=== PATIENT | female | born 1960 | race Caucasian/White ===

== ENCOUNTER 2017-04-19 17:16 | Emergency (ER) | payer OTHER ==
[2017-04-19 17:26] VITALS: BP 169/78; PULSE 66; TEMP 98.3; BMI 29.8
--- NOTE | 2017-04-19 18:00 | PDOC ---
History of Present Illness - General Chief Complaint: Pain Stated Complaint: PAIN Time Seen by Provider: 04/19/17 17:44 History Source: Patient Exam Limitations: No Limitations - History of Present Illness Initial Comments: 04/19/17 17:55 CHIEF COMPLAINT: Right hand pain HISTORY OF PRESENT ILLNESS: Patient is a 57-year-old female, history of NIDDM currently on no medication presents for evaluation of right hand pain with swelling, Pain and swelling at the MCP's. Patient reports pain for 2 months was seen by Dr. Cerrato, labs were performed does not know results patient's sister is visiting from [place] of [place] saw the patient was in pain and made her come to emergency department. Occurred: reports: other (2 months) Severity: reports: moderate Upper Extremity Pain Location: right: hand Method of Injury: reports: unknown Modifying Factors: improves with: None Extremity Pain Location - Extremity Pain Location Extremity Pain Locations: right: hand Past History - Past Medical History Allergies/Adverse Reactions: Allergies Allergy/AdvReac Type Severity Reaction Status Date / Time No Known Allergies Allergy Verified 04/19/17 17:23 Home Medications: Ambulatory Orders Metformin Xr [Glucophage Xr -] 500 mg PO BID 10/14/15 Naproxen [Naprosyn -] 500 mg PO BID #14 tablet 04/19/17 Diabetes: Yes HTN: Yes Thyroid Disease: Yes (HYPO, no meds, well conroled) - Surgical History Abdominal Surgery: Yes (GASTRIC SLEEVE/HERNIA REPAIR: 10/17/13) Appendectomy: Yes - Family Disease History Family Disease History: Diabetes: Father, Heart Disease: Mother - Immunization History Immunization Up to Date: Yes - Psycho/Social/Smoking Cessation Hx Anxiety: No Suicidal Ideation: No Smoking Status: No Smoking History: Never smoked Have you smoked in the past 12 months: No Number of Cigarettes Smoked Daily: 0 Cigars Per Day: 0 Information on smoking cessation initiated: No Hx Alcohol Use: No Drug/Substance Use Hx: No Substance Use Type: None Review of Systems - Review of Systems Constitutional: No: Symptoms Reported HEENTM: No: Symptoms Reported Respiratory: No: Symptoms reported Cardiac (ROS): No: Symptoms Reported ABD/GI: No: Symptoms Reported : No: Symptoms Reported Musculoskeletal: Yes: Joint Pain, Joint Swelling Integumentary: No: Bruising, Change in Color, Change in Hair/Nails, Erythema Neurological: No: Symptoms reported, Paresthesia, Tingling, Tremors All Other Systems: Reviewed and Negative *Physical Exam - Vital Signs Last Vital Signs Temp Pulse Resp BP Pulse Ox 98.3 F 66 18 169/78 100 04/19/17 17:24 04/19/17 17:24 04/19/17 17:24 04/19/17 17:24 04/19/17 17:24 - Physical Exam General Appearance: Yes: Appropriately Dressed. No: Apparent Distress Neck: negative: Tender lateral, Tender midline Respiratory/Chest: positive: Lungs Clear, Normal Breath Sounds Musculoskeletal: negative: Decreased Range of Motion Extremity: positive: Tender, Swelling. negative: Erythema, Inflammation Integumentary: positive: Normal Color, Dry. negative: Erythema, Swelling, Ecchymosis, Bruising Neurologic: positive: Alert, Normal Mood/Affect ED Treatment Course - RADIOLOGY Radiology Studies Ordered: Category Date Time Status HAND- RIGHT [RAD] Stat Radiology 04/19/17 17:52 Ordered Medical Decision Making - Medical Decision Making 04/19/17 18:01 A/P : Patient with right hand pain, swelling to MCPs third and fourth finger, denies injury. High suspicion for arthritic changes, we'll send patient for x- ray to rule out acute injury that may have been unknown to patient 04/19/17 18:43 Wet read xray negative for acute fracture or injury, patient will need to follow -up with rheumatology and Dr. Cerrato for evaluation of arthritis. Will DC patient on Naprosyn. I discussed the physical exam findings, ancillary test results and final diagnoses with the patient. I answered all of the patient's questions. The patient was satisfied with the care received and felt comfortable with the discharge plan and treatment plan. The patient will call to arrange follow-up and will return to the Emergency Department with any new, persistent or worsening symptoms. 04/19/17 18:46 *DC/Admit/Observation/Transfer Diagnosis at time of Disposition: Hand pain Qualifiers: Laterality: right Qualified Code(s): M79.641 - Pain in right hand - Discharge Dispostion Disposition: HOME Condition at time of disposition: Good Admit: No - Prescriptions Prescriptions: Naproxen [Naprosyn -] 500 mg PO BID #14 tablet - Referrals Referrals: Brian Ibarra MD [Staff Physician] - Kedar Cerrato MD [Staff Physician] - Danette Hameed [Non Staff, Medical] - - Patient Instructions Additional Instructions: Recommend follow-up with rheumatology as soon as possible and primary care doctor - Post Discharge Activity Work/School Note: Back to Work
== END 2017-04-19 18:51 | disposition home or self-care (01) ==
LOC: JERFT 17:16
DX: M79.641 Pain in right hand (principal); I10 Essential (primary) hypertension; E11.9 Type 2 diabetes mellitus without complications; Z79.84 Long term (current) use of oral hypoglycemic drugs; E03.9 Hypothyroidism, unspecified
CPT/HCPCS: 73130-TC-RT; 99281-25

== ENCOUNTER 2019-03-06 17:09 | Inpatient (IN) | payer BC, OTHER ==
--- NOTE | 2019-03-06 17:12 | PDOC ---
Rapid Medical Evaluation Time Seen by Provider: 03/06/19 17:10 Medical Evaluation: Allergies Allergy/AdvReac Type Severity Reaction Status Date / Time No Known Allergies Allergy Verified 04/19/17 17:23 03/06/19 17:10 I have performed a brief in-person evaluation of this patient. The patient presents with a chief complaint of: fatigued. Abnormal stress test Pertinent physical exam findings: lungs CTAB. S1,S2 persent. No m/r/g. I have ordered the following: cardiac The patient will proceed to the ED for further evaluation. Discharge Disposition - Diagnosis Fatigue - Referrals - Patient Instructions - Post Discharge Activity
[2019-03-06 17:37] LABS: BASO % 0.5 % (0-2.0); EOS % 1.6 % (0-4.5); HEMATOCRIT 34.4 % (32.4-45.2); HEMOGLOBIN 11.8 GM/dL (10.7-15.3); LYMPH % 30.3 % (8-40); MCH 31.3 pg (25.7-33.7); MCHC 34.4 g/dl (32.0-36.0); MEAN PLT VOLUME 7.9 fl (7.5-11.1); MONO % 5.8 % (3.8-10.2); NEUT % 61.8 % (42.8-82.8); PLATELET COUNT 226 K/MM3 (134-434); RBC 3.78 M/mm3 (3.60-5.2); RDW 13.6 % (11.6-15.6); WHITE BLOOD COUNT 6.5 K/mm3 (4.0-10.0)
--- NOTE | 2019-03-06 17:45 | PDOC ---
History of Present Illness - General Chief Complaint: Weakness Stated Complaint: SENT BY HER DOCTOR Time Seen by Provider: 03/06/19 17:10 - History of Present Illness Initial Comments: 03/06/19 17:45 Ms. Pinedo is a 58 yo female w/ pmh of HTN, Hypothyroidism, and DM who presents for evaluation on direction of Dr. Harvey (PCP). Patient reportedly had abnormal stress test 4/5 and PCP would like her admitted for further cardiac workup. Patient reports a 1 month history of generalized weakness. No other complaints at this time. The patient denies chest pain, shortness of breath, headache and dizziness. Denies fever, chills, nausea, vomit, diarrhea and constipation. Denies dysuria, frequency, urgency and hematuria. Past History - Past Medical History Allergies/Adverse Reactions: Allergies Allergy/AdvReac Type Severity Reaction Status Date / Time No Known Allergies Allergy Verified 03/06/19 17:15 Home Medications: Ambulatory Orders Losartan/Hydrochlorothiazide [Losartan-Hctz 100-25 mg Tab] 1 each PO DAILY 03/06 Meloxicam [Mobic] 15 mg PO DAILY 03/06/19 Sitagliptin Phosphate [Januvia] 100 mg PO DAILY 03/06/19 COPD: No Diabetes: Yes HTN: Yes Thyroid Disease: Yes (HYPO, no meds, well conroled) - Surgical History Abdominal Surgery: Yes (GASTRIC SLEEVE/HERNIA REPAIR: 10/17/13) Appendectomy: Yes - Family Disease History Family Disease History: Diabetes: Father, Heart Disease: Mother - Immunization History Immunization Up to Date: Yes - Suicide/Smoking/Psychosocial Hx Smoking Status: No Smoking History: Never smoked Have you smoked in the past 12 months: No Number of Cigarettes Smoked Daily: 0 Cigars Per Day: 0 Information on smoking cessation initiated: No Hx Alcohol Use: No Drug/Substance Use Hx: No Substance Use Type: None Review of Systems - Review of Systems Comments:: 03/06/19 17:49 GENERAL/CONSTITUTIONAL: +Generalized weakness as described. No fever or chills. HEAD, EYES, EARS, NOSE AND THROAT: No change in vision. No ear pain or discharge. No sore throat. CARDIOVASCULAR: No chest pain or shortness of breath RESPIRATORY: No cough, wheezing, or hemoptysis. GASTROINTESTINAL: No nausea, vomiting, diarrhea or constipation. GENITOURINARY: No dysuria, frequency, or change in urination. MUSCULOSKELETAL: No joint or muscle swelling or pain. No neck or back pain. SKIN: No rash NEUROLOGIC: No headache, vertigo, loss of consciousness, or change in strength/ sensation. ENDOCRINE: No increased thirst. No abnormal weight change HEMATOLOGIC/LYMPHATIC: No anemia, easy bleeding, or history of blood clots. ALLERGIC/IMMUNOLOGIC: No hives or skin allergy. *Physical Exam - Vital Signs Last Vital Signs Temp Pulse Resp BP Pulse Ox 97.7 F 79 18 188/98 H 98 03/06/19 17:11 03/06/19 17:11 03/06/19 17:11 03/06/19 17:11 03/06/19 17:11 - Physical Exam Comments: 03/06/19 17:49 GENERAL: Awake, alert, and fully oriented, in no acute distress HEAD: No signs of trauma, normocephalic, atraumatic EYES: PERRLA, EOMI, sclera anicteric, conjunctiva clear ENT: Auricles normal inspection, hearing grossly normal, nares patent, oropharynx clear without exudates. Moist mucosa NECK: Normal ROM, supple, no lymphadenopathy, JVD, or masses LUNGS: No distress, speaks full sentences, clear to auscultation bilaterally HEART: Regular rate and rhythm, normal S1 and S2, no murmurs, rubs or gallops, peripheral pulses normal and equal bilaterally. ABDOMEN: Soft, nontender, normoactive bowel sounds. No guarding, no rebound. No masses EXTREMITIES: Normal inspection, Normal range of motion, no edema. No clubbing or cyanosis. NEUROLOGICAL: Cranial nerves II through XII grossly intact. Normal speech, normal gait, no focal sensorimotor deficits SKIN: Warm, Dry, normal turgor, no rashes or lesions noted. ED Treatment Course - LABORATORY CBC & Chemistry Diagram: 03/06/19 17:22 03/06/19 17:21 - ADDITIONAL ORDERS Additional order review: 03/06/19 17:22 RBC 3.78 MCV 91.0 MCHC 34.4 RDW 13.6 MPV 7.9 Neutrophils % 61.8 Lymphocytes % 30.3 Monocytes % 5.8 Eosinophils % 1.6 Basophils % 0.5 Medical Decision Making - Medical Decision Making 03/06/19 18:03 Ms. Pinedo is a 58 yo female w/ pmh as described who presents for evaluation of abnormal outpatient stress test. Per records test yielded target heart rate of 85% of maximum predicted, 12 beat run of SVT; abnormal ECHO for inducible ischemia. Patient will be prepped for admission. 03/06/19 19:31 Discussed patient with PCP who would like patient admitted overnight to Dr. Parkinson and will transfer to [facility] tomorrow for possible intervention. 03/06/19 19:39 Patient admitted to hospital team. *DC/Admit/Observation/Transfer Diagnosis at time of Disposition: Abnormal stress echo Fatigue Qualifiers: Fatigue type: unspecified Qualified Code(s): R53.83 - Other fatigue - Discharge Dispostion Decision to Admit order: Yes - Referrals Referrals: Brian Marie FNP [Primary Care Provider] - - Patient Instructions - Post Discharge Activity
[2019-03-06 17:50] LABS: INR 1.04 (0.83-1.09); PROTHROMBIN TIME (PATIENT) 12.3 SEC (9.7-13.0)
[2019-03-06 18:01] LABS: ALBUMIN 4.4 g/dl (3.4-5.0); ALK PHOS 89 U/L (45-117); ANION GAP 5 MMOL/L (8-16); BILIRUBIN,TOTAL 0.6 mg/dL (0.2-1); BLOOD UREA NITROGEN 21 mg/dL (7-18); CALCIUM 8.6 mg/dL (8.5-10.1); CHLORIDE 107 mmol/L (98-107); CO2 28 mmol/L (21-32); CREATININE 0.8 mg/dL (0.55-1.3); GLUCOSE,RANDOM 94 mg/dL (74-106); MAGNESIUM 1.9 mg/dL (1.8-2.4); POTASSIUM 3.9 mmol/L (3.5-5.1); SGOT/AST 17 U/L (15-37); SGPT/ALT 19 U/L (13-61); SODIUM 141 mmol/L (136-145); TOT PROT 8.3 g/dl (6.4-8.2)
--- NOTE | 2019-03-06 18:23 | PDOC ---
Documentation entered by Bre Loza SCRIBE, acting as scribe for Valerie Moody MD. Attending Attestation - Resident Resident Name: Earnest Saldana - ED Attending Attestation I have performed the following: I have examined & evaluated the patient, The case was reviewed & discussed with the resident, I agree w/resident's findings & plan - HPI HPI: 03/06/19 18:06 The patient is a 58 year old female with a PMH of HTN, hypothyroidism, and DM who presents to the ER sent in by Dr. Harvey after having an abnormal stress test on 03/03. Denies any other complaints other than generalized weakness over the past month. The patient denies chest pain, shortness of breath, headache and dizziness. Denies fever, chills, nausea, vomit, diarrhea and constipation. Denies dysuria, frequency, urgency and hematuria. - Physicial Exam PE: GENERAL: Awake, alert, and fully oriented, in no acute distress HEAD: No signs of trauma EYES: PERRLA, EOMI, sclera anicteric, conjunctiva clear ENT: Auricles normal inspection, hearing grossly normal, nares patent, oropharynx clear without exudates. Moist mucosa NECK: Normal ROM, supple, no lymphadenopathy, JVD, or masses LUNGS: Breath sounds equal, clear to auscultation bilaterally. No wheezes, and no crackles HEART: Regular rate and rhythm, normal S1 and S2, no murmurs, rubs or gallops ABDOMEN: Soft, nontender, normoactive bowel sounds. No guarding, no rebound. No masses EXTREMITIES: Normal range of motion, no edema. No clubbing or cyanosis. No cords, erythema, or tenderness NEUROLOGICAL: Cranial nerves II through XII grossly intact. Normal speech, normal gait. Motor and sensation intact SKIN: Warm, Dry, normal turgor, no rashes or lesions noted. - Medical Decision Making Pt sent for admission s/p abnormal stress test. Will send labs, obtain CXR, and admit to tele. Valerie Moody MD: This documentation has been prepared by the leigh annibeDenia Daisy, SCRIBE, under my direction and personally reviewed by me in its entirety. I confirm that the documentation accurately reflects all work, treatment, procedures, and medical decision making performed by me.
--- NOTE | 2019-03-06 20:35 | HP ---
Admitting History and Physical - Primary Care Physician PCP: Timmy Harvey - Admission Chief Complaint: Abnormal Echo, Generalized Fatigue History Source: Patient Limitations to Obtaining History: No Limitations - Past Medical History Cardiovascular: Yes: HTN Endocrine: Yes: Diabetes Mellitus, Hypothyroidism - Smoking History Smoking history: Never smoked Have you smoked in the past 12 months: No Aproximately how many cigarettes per day: 0 - Alcohol/Substance Use Hx Alcohol Use: No Home Medications - Allergies Allergies/Adverse Reactions: Allergies Allergy/AdvReac Type Severity Reaction Status Date / Time No Known Allergies Allergy Verified 03/06/19 17:15 - Home Medications Home Medications: Ambulatory Orders Losartan/Hydrochlorothiazide [Losartan-Hctz 100-25 mg Tab] 1 each PO DAILY 03/06 Meloxicam [Mobic] 15 mg PO DAILY 03/06/19 Sitagliptin Phosphate [Januvia] 100 mg PO DAILY 03/06/19 Review of Systems - Review of Systems Constitutional: reports: Malaise, Weakness Eyes: reports: No Symptoms HENT: reports: No Symptoms Neck: reports: No Symptoms Cardiovascular: reports: No Symptoms Respiratory: reports: No Symptoms Gastrointestinal: reports: No Symptoms Genitourinary: reports: No Symptoms Breasts: reports: No Symptoms Reported Musculoskeletal: reports: No Symptoms Integumentary: reports: No Symptoms Neurological: reports: No Symptoms Endocrine: reports: No Symptoms Hematology/Lymphatic: reports: No Symptoms Psychiatric: reports: No Symptoms Physical Examination Vital Signs: Vital Signs Temperature 97.7 F 03/06/19 17:11 Pulse Rate 79 03/06/19 17:11 Respiratory Rate 18 03/06/19 17:11 Blood Pressure 188/98 H 03/06/19 17:11 O2 Sat by Pulse Oximetry (%) 98 03/06/19 17:11 Labs: CBC, BMP 03/06/19 17:22 03/06/19 17:21 Problem List - Problems (1) Abnormal stress echo Code(s): R94.39 - ABNORMAL RESULT OF OTHER CARDIOVASCULAR FUNCTION STUDY (2) Fatigue Code(s): R53.83 - OTHER FATIGUE Qualifiers: Fatigue type: unspecified Qualified Code(s): R53.83 - Other fatigue (3) HTN (hypertension) Code(s): I10 - ESSENTIAL (PRIMARY) HYPERTENSION (4) Hypothyroidism Code(s): E03.9 - HYPOTHYROIDISM, UNSPECIFIED (5) Diabetes mellitus Code(s): E11.9 - TYPE 2 DIABETES MELLITUS WITHOUT COMPLICATIONS Visit type - Emergency Visit Emergency Visit: Yes ED Registration Date: 03/06/19 Care time: The patient presented to the Emergency Department on the above date and was hospitalized for further evaluation of their emergent condition. - New Patient This patient is new to me today: Yes Date on this admission: 03/06/19 - Critical Care Critical Care patient: No
[2019-03-06] MEDS: INSULIN SLIDING SCALE (NOVOLOG) 1 VIAL SQ SCH (22:00)
[2019-03-06] MEDS ORDERED: ACETAMINOPHEN 325 MG TABLET (FP) PO PRN ×2 (22:24→23:45)
[2019-03-07] MEDS ORDERED: ACETAMINOPHEN 325 MG TABLET (FP) ONE
[2019-03-07 06:26] LABS: BASO % 0.6 % (0-2.0); EOS % 2.2 % (0-4.5); HEMATOCRIT 32.5 % (32.4-45.2); HEMOGLOBIN 11.3 GM/dL (10.7-15.3); MCH 31.2 pg (25.7-33.7); MCHC 34.8 g/dl (32.0-36.0); MEAN CELL VOLUME 89.8 fl (80-96); MEAN PLT VOLUME 7.8 fl (7.5-11.1); MONO % 8.1 % (3.8-10.2); NEUT % 56.1 % (42.8-82.8); PLATELET COUNT 204 K/MM3 (134-434); RBC 3.62 M/mm3 (3.60-5.2); RDW 13.7 % (11.6-15.6); WHITE BLOOD COUNT 5.3 K/mm3 (4.0-10.0)
[2019-03-07] MEDS: INSULIN SLIDING SCALE (NOVOLOG) 1 VIAL SQ SCH ×2 (06:37→12:19)
[2019-03-07 06:55] LABS: ANION GAP 5 MMOL/L (8-16); BLOOD UREA NITROGEN 20 mg/dL (7-18); CALCIUM 9.1 mg/dL (8.5-10.1); CHLORIDE 109 mmol/L (98-107); CHOLESTEROL 174 mg/dL (50-200); CO2 29 mmol/L (21-32); CREATININE 0.7 mg/dL (0.55-1.3); GLUCOSE,RANDOM 94 mg/dL (74-106); HDL CHOLESTEROL 57 mg/dL (40-60); MAGNESIUM 1.9 mg/dL (1.8-2.4); POTASSIUM 3.8 mmol/L (3.5-5.1); SODIUM 142 mmol/L (136-145); TRIGLYCERIDES 94 mg/dL (0-150)
--- NOTE | 2019-03-07 09:36 | CON.CARD ---
Consult Consult Specialty:: Cardiology - History of Present Illness Chief Complaint: CP History of Present Illness: 58 F DMx 20 y and HTN with few weeks of fatigue, intermittent BONNER and CP mostly at her job at the [id number]. No rest pain. A stress echo 02/24/19 showed frequent VPCs and a run of SVT during exercise. Patient exercised to 85% MPHR (?duration of exercise) and noted to have posterior wall hypokinesis at peak stress. Since the test has had recurrent symptoms and was instructed to go to ER. Has been CP free since admission. Telem is normal. A cardiac cath 11 years ago was performed-no intervention. - History Source History Provided By: Patient Limitations to Obtaining History: No Limitations - Past Medical History Cardio/Vascular: Yes: HTN Endocrine: Yes: Diabetes Mellitus, Hypothyroidism - Alcohol/Substance Use Hx Alcohol Use: No - Smoking History Smoking history: Never smoked Have you smoked in the past 12 months: No Aproximately how many cigarettes per day: 0 Home Medications - Allergies Allergies/Adverse Reactions: Allergies Allergy/AdvReac Type Severity Reaction Status Date / Time No Known Allergies Allergy Verified 03/06/19 17:15 - Home Medications Home Medications: Ambulatory Orders Losartan/Hydrochlorothiazide [Losartan-Hctz 100-25 mg Tab] 1 each PO DAILY 03/06 Meloxicam [Mobic] 15 mg PO DAILY 03/06/19 Sitagliptin Phosphate [Januvia] 100 mg PO DAILY 03/06/19 Review of Systems - Review of Systems Constitutional: reports: No Symptoms Eyes: reports: No Symptoms HENT: reports: No Symptoms Neck: reports: No Symptoms Cardiovascular: reports: Chest Pain Respiratory: reports: No Symptoms Gastrointestinal: reports: No Symptoms Genitourinary: reports: No Symptoms Vital Signs: Vital Signs Temperature 98.0 F 03/07/19 04:00 Pulse Rate 72 03/07/19 04:00 Respiratory Rate 18 03/07/19 04:00 Blood Pressure 143/79 03/07/19 04:00 O2 Sat by Pulse Oximetry (%) 97 03/07/19 04:00 Constitutional: Yes: Well Nourished, No Distress, Calm Eyes: Yes: Conjunctiva Clear, EOM Intact HENT: Yes: Atraumatic, Normocephalic Neck: Yes: Supple, Trachea Midline Respiratory: Yes: Regular, CTA Bilaterally Gastrointestinal: Yes: Normal Bowel Sounds, Soft Cardiovascular: Yes: Regular Rate and Rhythm JVD: No Carotid Bruit: No PMI: Non-Displaced Heart Sounds: Yes: S1, S2 Murmur: No: Systolic Murmur, Diastolic Murmur Edema: No - Other Data Labs, Other Data: CBC, BMP 03/07/19 05:30 03/07/19 05:30 INR, PTT INR 1.04 (0.83-1.09) 03/06/19 17:22 Troponin, BNP 03/06/19 17:21 Troponin I 0.05 Troponin, BNP 03/06/19 17:21 Troponin I 0.05 Problem List - Problems (1) Angina pectoris Code(s): I20.9 - ANGINA PECTORIS, UNSPECIFIED (2) Abnormal stress echo Code(s): R94.39 - ABNORMAL RESULT OF OTHER CARDIOVASCULAR FUNCTION STUDY Assessment/Plan 58 F DM, HTN with recent fatigue, CP and BONNER with exertion. Stress echo with posterior wall stress induced Wall motion abnormality. Normal baseline Echo. ECG is normal. Mild dehydration by BUN/Cr. Possible new onset angina. HR 60bpm at rest. NS @75cc/hr Lipitor 80mg qd. Will transfer for cardiac cath. Discussed Risks/benefits/alternatives to cath with patient not limited to , RI, CVA, bleeding. Pt agreeable to the procedure.
[2019-03-07 09:41] VITALS: BP 161/80; PULSE 69
[2019-03-07] MEDS ORDERED: SODIUM CHLORIDE 1,000 ML IV SCH (09:45)
[2019-03-07] MEDS ORDERED: LOSARTAN 50MG/HCTZ 12.5MG 1 TAB (FP) PO SCH (10:00)
[2019-03-07 10:16] VITALS: TEMP 98.2; BMI 31.1
--- NOTE | 2019-03-07 12:28 | CONSULT ---
Consult Consult Specialty:: endocrine Referred by:: ed Reason for Consultation:: hypothyroidism. diabetes mellitus - History of Present Illness Chief Complaint: chest pain and dyspnea History of Present Illness: 58 F DMx 20 y and hypothyroidism, HTN, intermittent BONNER and CP mostly at her work. A stress echo 02/24/19 showed frequent VPCs and a run of SVT during exercise.abnormal stress test,with recurrent symptoms of chest pain and nearly passed out,advised to present to ed.she denies fever chills,nausea,or vomiting, - Past Medical History Cardio/Vascular: Yes: HTN ...: No Endocrine: Yes: Diabetes Mellitus, Hypothyroidism - Alcohol/Substance Use Hx Alcohol Use: No - Smoking History Smoking history: Never smoked Have you smoked in the past 12 months: No Aproximately how many cigarettes per day: 0 Home Medications - Allergies Allergies/Adverse Reactions: Allergies Allergy/AdvReac Type Severity Reaction Status Date / Time No Known Allergies Allergy Verified 03/06/19 17:15 - Home Medications Home Medications: Ambulatory Orders Losartan/Hydrochlorothiazide [Losartan-Hctz 100-25 mg Tab] 1 each PO DAILY 03/06 Meloxicam [Mobic] 15 mg PO DAILY 03/06/19 Sitagliptin Phosphate [Januvia] 100 mg PO DAILY 03/06/19 Review of Systems - Review of Systems Constitutional: reports: Weakness Eyes: reports: No Symptoms HENT: reports: No Symptoms Neck: reports: No Symptoms Cardiovascular: reports: Shortness of Breath Respiratory: reports: Exercise Intolerance, SOB on Exertion Gastrointestinal: reports: Constipation Genitourinary: reports: No Symptoms Breasts: reports: No Symptoms Reported Musculoskeletal: reports: Muscle Cramps, Muscle Weakness Integumentary: reports: No Symptoms Neurological: reports: No Symptoms Endocrine: reports: Intolerance to Heat, Unexplained Weight Gain Physical Exam Vital Signs: Vital Signs Temperature 98.2 F 03/07/19 10:04 Pulse Rate 69 03/07/19 10:04 Respiratory Rate 18 03/07/19 10:04 Blood Pressure 161/80 03/07/19 10:04 O2 Sat by Pulse Oximetry (%) 97 03/07/19 04:00 Constitutional: Yes: Anxious Eyes: Yes: EOM Intact HENT: Yes: Normocephalic Neck: Yes: Trachea Midline Cardiovascular: Yes: Tachycardia Respiratory: Yes: CTA Bilaterally Gastrointestinal: Yes: Normal Bowel Sounds ...Rectal Exam: Yes: Deferred Renal/: Yes: WNL Musculoskeletal: Yes: Muscle Pain, Muscle Weakness Extremities: Yes: WNL Edema: No Peripheral Pulses WNL: Yes Neurological: Yes: Alert, Oriented Labs: CBC, BMP 03/07/19 05:30 03/07/19 05:30 Problem List - Problems (1) 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 Code(s): E03.8 - OTHER SPECIFIED HYPOTHYROIDISM; E06.3 - AUTOIMMUNE THYROIDITIS (2) Abdominal pain Code(s): R10.9 - UNSPECIFIED ABDOMINAL PAIN (3) Abnormal stress echo Code(s): R94.39 - ABNORMAL RESULT OF OTHER CARDIOVASCULAR FUNCTION STUDY (4) Diabetes mellitus Code(s): E11.9 - TYPE 2 DIABETES MELLITUS WITHOUT COMPLICATIONS (5) HTN (hypertension) Code(s): I10 - ESSENTIAL (PRIMARY) HYPERTENSION Assessment/Plan hypothyroidism dm2 controlled with med/diet chest pain abnormal stress echo symptomatic hyperlipidemia htn Abnormal Lab Results 03/06/19 03/07/19 17:21 05:30 Chloride 109 H Anion Gap 5 L 5 L BUN 21 H 20 H Total Protein 8.3 H Total LDL Cholesterol 102 H Laboratory Results - last 24 hr 03/06/19 03/06/19 03/06/19 17:21 17:22 17:22 WBC 6.5 RBC 3.78 Hgb 11.8 Hct 34.4 MCV 91.0 MCH 31.3 MCHC 34.4 RDW 13.6 Plt Count 226 MPV 7.9 Absolute Neuts (auto) 4.0 Neutrophils % 61.8 Lymphocytes % 30.3 Monocytes % 5.8 Eosinophils % 1.6 Basophils % 0.5 Nucleated RBC % 0 PT with INR 12.30 INR 1.04 Sodium 141 Potassium 3.9 Chloride 107 Carbon Dioxide 28 Anion Gap 5 L BUN 21 H Creatinine 0.8 Creat Clearance w eGFR 73.67 POC Glucometer Random Glucose 94 Calcium 8.6 Phosphorus Magnesium 1.9 Total Bilirubin 0.6 AST 17 ALT 19 Alkaline Phosphatase 89 Creatine Kinase 184 Creatine Kinase Index 1.2 CK-MB (CK-2) 2.3 Troponin I 0.05 Total Protein 8.3 H Albumin 4.4 Triglycerides Cholesterol Total LDL Cholesterol HDL Cholesterol TSH 03/06/19 03/07/19 03/07/19 22:10 05:30 05:30 WBC 5.3 RBC 3.62 Hgb 11.3 Hct 32.5 MCV 89.8 MCH 31.2 MCHC 34.8 RDW 13.7 Plt Count 204 MPV 7.8 Absolute Neuts (auto) 3.0 Neutrophils % 56.1 Lymphocytes % 33.0 Monocytes % 8.1 Eosinophils % 2.2 Basophils % 0.6 Nucleated RBC % 0 PT with INR INR Sodium 142 Potassium 3.8 Chloride 109 H Carbon Dioxide 29 Anion Gap 5 L BUN 20 H Creatinine 0.7 Creat Clearance w eGFR 85.95 POC Glucometer 119 Random Glucose 94 Calcium 9.1 Phosphorus 4.0 Magnesium 1.9 Total Bilirubin AST ALT Alkaline Phosphatase Creatine Kinase Creatine Kinase Index CK-MB (CK-2) Troponin I Total Protein Albumin Triglycerides 94 Cholesterol 174 Total LDL Cholesterol 102 H HDL Cholesterol 57 TSH 1.30 03/07/19 03/07/19 06:35 11:44 WBC RBC Hgb Hct MCV MCH MCHC RDW Plt Count MPV Absolute Neuts (auto) Neutrophils % Lymphocytes % Monocytes % Eosinophils % Basophils % Nucleated RBC % PT with INR INR Sodium Potassium Chloride Carbon Dioxide Anion Gap BUN Creatinine Creat Clearance w eGFR POC Glucometer 93 100 Random Glucose Calcium Phosphorus Magnesium Total Bilirubin AST ALT Alkaline Phosphatase Creatine Kinase Creatine Kinase Index CK-MB (CK-2) Troponin I Total Protein Albumin Triglycerides Cholesterol Total LDL Cholesterol HDL Cholesterol TSH plan: check tsh free t4 continue januvia 100mg daily bgm bid lipitor 40mg daily hyzaar 100/25 cardiology workup in progress [facility] for [facility]adiac cath
--- NOTE | 2019-03-07 17:38 | DS ---
Physical Examination Vital Signs: Vital Signs Temperature 98.2 F 03/07/19 10:04 Pulse Rate 69 03/07/19 10:04 Respiratory Rate 18 03/07/19 10:04 Blood Pressure 161/80 03/07/19 10:04 O2 Sat by Pulse Oximetry (%) 97 03/07/19 04:00 Findings/Remarks: Patient is a 54 y/o female patient with past medical history of hypothyroidism, HTN, intermittent BONNER, and CP. A stress Echo was done on 02/24/19 and showed frequent VPC and a run of SVT during exercise. Patient has re-current CP and abnormal stress test. Evaluated by cardiology and transferred to tertiary [facility] for cardiac cath. Labs: CBC, BMP 03/07/19 05:30 03/07/19 05:30 Discharge Summary Reason For Visit: ABNORMAL STRESS ECHOCARDIOGRAPHY,FATIGUE Hospital Course: see progress notes Laboratory Tests 03/06/19 03/06/19 03/06/19 17:21 17:22 17:22 WBC 6.5 RBC 3.78 Hgb 11.8 Hct 34.4 MCV 91.0 MCH 31.3 MCHC 34.4 RDW 13.6 Plt Count 226 MPV 7.9 Absolute Neuts (auto) 4.0 Neutrophils % 61.8 Lymphocytes % 30.3 Monocytes % 5.8 Eosinophils % 1.6 Basophils % 0.5 Nucleated RBC % 0 PT with INR 12.30 INR 1.04 Sodium 141 Potassium 3.9 Chloride 107 Carbon Dioxide 28 Anion Gap 5 L BUN 21 H Creatinine 0.8 Creat Clearance w eGFR 73.67 POC Glucometer Random Glucose 94 Calcium 8.6 Phosphorus Magnesium 1.9 Total Bilirubin 0.6 AST 17 ALT 19 Alkaline Phosphatase 89 Creatine Kinase 184 Creatine Kinase Index 1.2 CK-MB (CK-2) 2.3 Troponin I 0.05 Total Protein 8.3 H Albumin 4.4 Triglycerides Cholesterol Total LDL Cholesterol HDL Cholesterol TSH 03/06/19 03/07/19 03/07/19 22:10 05:30 05:30 WBC 5.3 RBC 3.62 Hgb 11.3 Hct 32.5 MCV 89.8 MCH 31.2 MCHC 34.8 RDW 13.7 Plt Count 204 MPV 7.8 Absolute Neuts (auto) 3.0 Neutrophils % 56.1 Lymphocytes % 33.0 Monocytes % 8.1 Eosinophils % 2.2 Basophils % 0.6 Nucleated RBC % 0 PT with INR INR Sodium 142 Potassium 3.8 Chloride 109 H Carbon Dioxide 29 Anion Gap 5 L BUN 20 H Creatinine 0.7 Creat Clearance w eGFR 85.95 POC Glucometer 119 Random Glucose 94 Calcium 9.1 Phosphorus 4.0 Magnesium 1.9 Total Bilirubin AST ALT Alkaline Phosphatase Creatine Kinase Creatine Kinase Index CK-MB (CK-2) Troponin I Total Protein Albumin Triglycerides 94 Cholesterol 174 Total LDL Cholesterol 102 H HDL Cholesterol 57 TSH 1.30 03/07/19 03/07/19 06:35 11:44 WBC RBC Hgb Hct MCV MCH MCHC RDW Plt Count MPV Absolute Neuts (auto) Neutrophils % Lymphocytes % Monocytes % Eosinophils % Basophils % Nucleated RBC % PT with INR INR Sodium Potassium Chloride Carbon Dioxide Anion Gap BUN Creatinine Creat Clearance w eGFR POC Glucometer 93 100 Random Glucose Calcium Phosphorus Magnesium Total Bilirubin AST ALT Alkaline Phosphatase Creatine Kinase Creatine Kinase Index CK-MB (CK-2) Troponin I Total Protein Albumin Triglycerides Cholesterol Total LDL Cholesterol HDL Cholesterol TSH Home Medication List Medication Instructions Recorded Confirmed Type Losartan/Hydrochlorothiazide 1 each PO DAILY 03/06/19 03/06/19 History [Losartan-Hctz 100-25 mg Tab] Meloxicam [Mobic] 15 mg PO DAILY 03/06/19 03/06/19 History Sitagliptin Phosphate [Januvia] 100 mg PO DAILY 03/06/19 03/06/19 History Condition: Worsened - Instructions Diet, Activity, Other Instructions: follow up with PMD 48hrs after discharge follow up with syrup maker continue with medication regimen as prescribed return to ER if develop severe chest pain, respiratory distress, AMS Disposition: TRANSFER ACUTE CARE/OTHER HOSP - Home Medications Comprehensive Discharge Medication List: Ambulatory Orders Losartan/Hydrochlorothiazide [Losartan-Hctz 100-25 mg Tab] 1 each PO DAILY 03/06 Meloxicam [Mobic] 15 mg PO DAILY 03/06/19 Sitagliptin Phosphate [Januvia] 100 mg PO DAILY 03/06/19
[2019-03-08] MEDS ORDERED: ASPIRIN 81 MG CHEWABLE TABLETS PO SCH (10:00)
--- NOTE | 2019-03-08 12:25 | EKG ---
Test Reason : Blood Pressure : / mmHG Vent. Rate : 063 BPM Atrial Rate : 063 BPM P-R Int : 162 ms QRS Dur : 080 ms QT Int : 390 ms P-R-T Axes : 044 021 037 degrees QTc Int : 399 ms NORMAL SINUS RHYTHM NORMAL ECG WHEN COMPARED WITH ECG OF 19-NOV-2015 15:10, NO SIGNIFICANT CHANGE WAS FOUND Confirmed by CAITY SWAN MD ([id number]) on 03/08/2019 12:25:24 PM Referred By: Confirmed By:CAITY SWAN MD
== END 2019-03-07 12:02 | disposition short-term general hospital (02) | DRG 311 ==
LOC: JER 17:09 → JERBED 18:05 → J4W 03-07 08:31
PROVIDERS: ADMIT Family Medicine; ATTEND Family Medicine
DX: I20.9 Angina pectoris, unspecified (principal); I47.1 Supraventricular tachycardia; R94.39 Abnormal result of other cardiovascular function study; E86.0 Dehydration; I10 Essential (primary) hypertension; E11.9 Type 2 diabetes mellitus without complications; E03.9 Hypothyroidism, unspecified; R07.9 Chest pain, unspecified
CPT/HCPCS: 36415; 71046-TC-FY; 80048; 80053; 80061; 82550; 82553; 82962; 83721; 83735; 84100; 84443; 84484; 85025; 85610; 93005; 93010; 99285-25; J7030

== ENCOUNTER 2021-06-10 12:10 | Emergency (ER) | payer BC ==
[2021-06-10 12:27] VITALS: BMI 25.8
[2021-06-10] MEDS ORDERED: morphine CARPU-JECT 2 MG/1 ML DISP.SYRIN IVPUSH ONE (13:42)
[2021-06-10] MEDS ORDERED: MORPHINE SULFATE 2 MG/ML VIAL ONE (15:04)
[2021-06-10 15:20] LABS: BASO % 0.6 % (0-2.0); EOS % 1.3 % (0-4.5); HEMATOCRIT 32.6 % (32.4-45.2); HEMOGLOBIN 10.9 GM/dL (10.7-15.3); LYMPH % 37.4 % (8-40); MCHC 33.4 g/dl (32.0-36.0); MEAN CELL VOLUME 83.8 fl (80-96); MEAN PLT VOLUME 8.2 fl (7.5-11.1); MONO % 8.5 % (3.8-10.2); NEUT % 52.2 % (42.8-82.8); PLATELET COUNT 203 10^3/uL (134-434); RBC 3.89 M/mm3 (3.60-5.2); RDW 13.9 % (11.6-15.6); WHITE BLOOD COUNT 6.2 K/mm3 (4.0-10.0)
[2021-06-10 15:42] LABS: ALBUMIN 3.8 g/dl (3.4-5.0); BLOOD UREA NITROGEN 13.8 mg/dL (7-18); CALCIUM 9.4 mg/dL (8.5-10.1)
[2021-06-10 15:46] LABS: CREATININE 0.6 mg/dL (0.55-1.3)
[2021-06-10 15:47] LABS: BILIRUBIN,TOTAL 0.7 mg/dL (0.2-1); TOT PROT 7.8 g/dl (6.4-8.2)
[2021-06-10] MEDS ORDERED: ACETAMINOPHEN 1000 MG/100 ML VIAL (NON FORMULARY) IVPB ONE (16:47)
[2021-06-10 17:36] VITALS: BP 161/77; PULSE 69; TEMP 98.2
== END 2021-06-10 18:29 | disposition home or self-care (01) ==
LOC: JER 12:10
PROC: 3E0333Z Introduction of Anti-inflammatory into Peripheral Vein, Percutaneous Approach (ICD-10-PCS; principal; 2021-06-10)
PROC: 3E033NZ Introduction of Analgesics, Hypnotics, Sedatives into Peripheral Vein, Percutaneous Approach (ICD-10-PCS; 2021-06-10)
DX: R10.9 Unspecified abdominal pain (principal)
CPT/HCPCS: 36415; 74177-TC; 76705-TC; 80053; 80307; 82550; 83690; 84484; 85025; 93005; 93010; 99285-25; J0131; Q9967

== ENCOUNTER 2022-04-21 04:13 | Day surgery (SDC) | payer BC, OTHER ==
[2022-04-16 15:35] VITALS: BMI 25.8
[2022-04-21 13:27] VITALS: TEMP 97.8
[2022-04-21 14:07] VITALS: BP 165/71; PULSE 50
== END 2022-04-21 14:50 | disposition home or self-care (01) ==
LOC: JASU-ENDO 04:13
PROVIDERS: ATTEND Internal Medicine Gastroenterology
PROC: 0DB78ZX Excision of Stomach, Pylorus, Via Natural or Artificial Opening Endoscopic, Diagnostic (ICD-10-PCS; 2022-04-21)
PROC: 0DB28ZX Excision of Middle Esophagus, Via Natural or Artificial Opening Endoscopic, Diagnostic (ICD-10-PCS; 2022-04-21)
PROC: 0DB98ZX Excision of Duodenum, Via Natural or Artificial Opening Endoscopic, Diagnostic (ICD-10-PCS; principal; 2022-04-21 11:15)
DX: K29.50 Unspecified chronic gastritis without bleeding (principal); K31.7 Polyp of stomach and duodenum; Z98.84 Bariatric surgery status; I10 Essential (primary) hypertension; E11.9 Type 2 diabetes mellitus without complications
CPT/HCPCS: 88305-TC; 88342-TC

== ENCOUNTER 2022-06-10 19:54 | Inpatient (IN) | payer BC, OTHER ==
[2022-06-10] MEDS ORDERED: morphine CARPU-JECT 4 MG/1 ML DISP.SYRIN IVPUSH ONE (21:12)
[2022-06-10 21:37] LABS: BASO % 0.5 % (0-2.0); EOS % 2.4 % (0-4.5); HEMOGLOBIN 11.1 GM/dL (10.7-15.3); LYMPH % 37.6 % (8-40); MCH 29.5 pg (25.7-33.7); MCHC 33.5 g/dl (32.0-36.0); MEAN PLT VOLUME 7.7 fl (7.5-11.1); MONO % 7.3 % (3.8-10.2); NEUT % 52.2 % (42.8-82.8); PLATELET COUNT 227 10^3/uL (134-434); RBC 3.75 M/mm3 (3.60-5.2); RDW 14.4 % (11.6-15.6); WHITE BLOOD COUNT 6.4 K/mm3 (4.0-10.0)
[2022-06-10 21:50] LABS: ACTIVATED PTT 32.4 SECONDS (25.2-36.5); INR 1.01 (0.83-1.09); PROTHROMBIN TIME (PATIENT) 11.6 SEC (9.7-13.0)
[2022-06-10 21:54] LABS: CHLORIDE 105 mmol/L (98-107); SODIUM 139 mmol/L (136-145)
[2022-06-10 21:56] LABS: ALBUMIN 3.7 g/dl (3.4-5.0); ANION GAP 7 MMOL/L (8-16); BLOOD UREA NITROGEN 20.6 mg/dL (7-18); CALCIUM 9.1 mg/dL (8.5-10.1); CO2 27 mmol/L (21-32); GLUCOSE,RANDOM 165 mg/dL (74-106)
[2022-06-10 21:59] LABS: CREATININE 1.3 mg/dL (0.55-1.3); SGOT/AST 15 U/L (15-37); SGPT/ALT 18 U/L (13-61)
[2022-06-10 22:01] LABS: BILIRUBIN,TOTAL 0.4 mg/dL (0.2-1); TOT PROT 8.1 g/dl (6.4-8.2)
[2022-06-10 22:02] LABS: ALK PHOS 183 U/L (45-117)
[2022-06-10] MEDS ORDERED: morphine SULFATE 4 MG/ML VIAL ONE (23:13)
[2022-06-10] MEDS ORDERED: ASPIRIN 81 MG CHEWABLE TABLETS PO ONE (23:53)
[2022-06-10] MEDS ORDERED: ASPIRIN 81 MG CHEWABLE TABLETS ONE (23:58)
[2022-06-11] MEDS ORDERED: ENOXAPARIN NA (PORCINE) 80 MG/0.8 ML DISP.SYRIN SQ ONE ×4 (00:04→21:27)
[2022-06-11] MEDS: morphine SULFATE 4 MG/ML VIAL IVPUSH PRN ×2 (04:42→12:52)
[2022-06-11 06:59] LABS: BASO % 0.5 % (0-2.0); EOS % 1.8 % (0-4.5); HEMATOCRIT 34.2 % (32.4-45.2); HEMOGLOBIN 11.2 GM/dL (10.7-15.3); LYMPH % 38.4 % (8-40); MCHC 32.9 g/dl (32.0-36.0); MEAN CELL VOLUME 88.1 fl (80-96); MEAN PLT VOLUME 8.5 fl (7.5-11.1); MONO % 6.4 % (3.8-10.2); NEUT % 52.9 % (42.8-82.8); PLATELET COUNT 223 10^3/uL (134-434); RBC 3.88 M/mm3 (3.60-5.2); RDW 14.3 % (11.6-15.6); WHITE BLOOD COUNT 7.4 K/mm3 (4.0-10.0)
[2022-06-11 07:17] LABS: CHLORIDE 106 mmol/L (98-107); SODIUM 140 mmol/L (136-145)
[2022-06-11 07:23] LABS: CALCIUM 8.7 mg/dL (8.5-10.1)
[2022-06-11 07:24] LABS: ALBUMIN 3.8 g/dl (3.4-5.0); ANION GAP 5 MMOL/L (8-16); BLOOD UREA NITROGEN 15.8 mg/dL (7-18); CO2 29 mmol/L (21-32); GLUCOSE,RANDOM 85 mg/dL (74-106)
[2022-06-11 07:27] LABS: BILIRUBIN,TOTAL 0.7 mg/dL (0.2-1); CHOLESTEROL 158 mg/dL (50-200); CREATININE 0.8 mg/dL (0.55-1.3); SGOT/AST 22 U/L (15-37); SGPT/ALT 21 U/L (13-61); TRIGLYCERIDES 73 mg/dL (0-150)
[2022-06-11 07:28] LABS: ALK PHOS 180 U/L (45-117); LDL CHOLESTEROL (ONLY SJRH) 79 mg/dL (5-100); TOT PROT 8.4 g/dl (6.4-8.2)
[2022-06-11 07:29] LABS: HDL CHOLESTEROL 72 mg/dL (40-60)
[2022-06-11 09:31] LABS: N-TERMINAL BNP 193.6 pg/ml (5-125)
[2022-06-11] MEDS ORDERED: VALSARTAN 80 MG TABLET ONE (09:43)
[2022-06-11] MEDS ORDERED: ASPIRIN 81 MG CHEWABLE TABLETS ONE (09:43)
[2022-06-11] MEDS: ENOXAPARIN NA (PORCINE) 80 MG/0.8 ML DISP.SYRIN SQ SCH ×2 (11:02→21:30)
[2022-06-11] MEDS: METHIMAZOLE 10 MG TABLET PO SCH (11:03)
[2022-06-11] MEDS: VALSARTAN 160 MG TABLET PO SCH (11:03)
[2022-06-11] MEDS ORDERED: morphine SULFATE 4 MG/ML VIAL ONE (12:45)
[2022-06-11] MEDS ORDERED: SODIUM CHLORIDE 1,000 ML IV SCH (16:30)
[2022-06-12 01:13] VITALS: BMI 27.8
[2022-06-12 08:29] LABS: BASO % 0.6 % (0-2.0); EOS % 1.1 % (0-4.5); HEMATOCRIT 36.6 % (32.4-45.2); HEMOGLOBIN 12.3 GM/dL (10.7-15.3); LYMPH % 27.3 % (8-40); MCH 29.4 pg (25.7-33.7); MCHC 33.5 g/dl (32.0-36.0); MEAN CELL VOLUME 87.9 fl (80-96); MEAN PLT VOLUME 8.7 fl (7.5-11.1); MONO % 6.1 % (3.8-10.2); NEUT % 64.9 % (42.8-82.8); PLATELET COUNT 227 10^3/uL (134-434); RBC 4.17 M/mm3 (3.60-5.2); RDW 14.1 % (11.6-15.6); WHITE BLOOD COUNT 6.6 K/mm3 (4.0-10.0)
[2022-06-12 08:40] LABS: CALCIUM 9.5 mg/dL (8.5-10.1)
[2022-06-12 08:41] LABS: ALBUMIN 3.7 g/dl (3.4-5.0); BLOOD UREA NITROGEN 14.1 mg/dL (7-18); MAGNESIUM 1.8 mg/dL (1.8-2.4)
[2022-06-12 08:44] LABS: CREATININE 0.7 mg/dL (0.55-1.3); PHOSPHOROUS 4.3 mg/dL (2.5-4.9)
[2022-06-12 08:45] LABS: BILIRUBIN,TOTAL 1.3 mg/dL (0.2-1); TOT PROT 8.2 g/dl (6.4-8.2)
[2022-06-12 09:05] LABS: EPI CELLS 21 /uL (0-25.1); HYALINE CASTS 1 /uL (0-3.1); PH,URINE 5.5 (5.0-8.0); URINE APPEARANCE CLEAR; URINE BACTERIA 69 /uL (0-1359); URINE BILIRUBIN NEGATIVE (NEGATIVE); URINE COLOR YELLOW; URINE GLUCOSE (UA) NEGATIVE (NEGATIVE); URINE KETONE TRACE (NEGATIVE); URINE LEUK ESTERASE 1+ (NEGATIVE); URINE NITRITE NEGATIVE (NEGATIVE); URINE PROTEIN 2+ (NEGATIVE); URINE RBC 9 /uL (0-23.9); URINE WBC 42 /uL (0-25.8)
[2022-06-12] MEDS: VALSARTAN 160 MG TABLET PO SCH (09:33)
[2022-06-12] MEDS: METHIMAZOLE 10 MG TABLET PO SCH ×2 (10:30→21:41)
[2022-06-12] MEDS ORDERED: REGADENOSON 0.4 MG/5 ML PRE-FILLED SYRINGE IVPUSH ONE ×2 (11:29→11:30)
[2022-06-12] MEDS: ENOXAPARIN NA (PORCINE) 80 MG/0.8 ML DISP.SYRIN SQ SCH ×2 (13:31→21:41)
[2022-06-12] MEDS: metoPROLOL SUCCINATE 25 MG TAB.SR.24H (FP) PO SCH (13:31)
[2022-06-12] MEDS: ASPIRIN 81 MG CHEWABLE TABLETS PO SCH (13:32)
[2022-06-13] MEDS: METHIMAZOLE 10 MG TABLET PO SCH ×3 (09:31→21:59)
[2022-06-13] MEDS: ASPIRIN 81 MG CHEWABLE TABLETS PO SCH (09:31)
[2022-06-13] MEDS: VALSARTAN 160 MG TABLET PO SCH (09:31)
[2022-06-13] MEDS: metoPROLOL SUCCINATE 25 MG TAB.SR.24H (FP) PO SCH (09:31)
[2022-06-13] MEDS: ENOXAPARIN NA (PORCINE) 80 MG/0.8 ML DISP.SYRIN SQ SCH ×2 (09:32→21:57)
[2022-06-13 15:23] VITALS: RESP 18
[2022-06-13] MEDS ORDERED: MAG HYDROX/AL HYDROX/SIMETH 30 ML UNIT-DOSE CUP PO PRN (21:01)
[2022-06-14] MEDS: METHIMAZOLE 10 MG TABLET PO SCH ×2 (06:05→14:05)
[2022-06-14] MEDS ORDERED: APIXABAN 5 MG TABLET PO SCH (10:00)
[2022-06-14] MEDS: ENOXAPARIN NA (PORCINE) 80 MG/0.8 ML DISP.SYRIN SQ SCH (10:10)
[2022-06-14] MEDS: VALSARTAN 160 MG TABLET PO SCH (10:34)
[2022-06-14] MEDS: ASPIRIN 81 MG CHEWABLE TABLETS PO SCH (10:34)
[2022-06-14 14:50] VITALS: BP 139/60; PULSE 69; TEMP 98.2
== END 2022-06-14 15:40 | disposition home or self-care (01) | DRG 313 ==
LOC: JER 19:54 → JERBED 23:42 → J4W 06-12 00:37
PROVIDERS: ADMIT Internal Medicine; ATTEND Family Medicine
DX: R07.89 Other chest pain (principal); N17.9 Acute kidney failure, unspecified; Z79.84 Long term (current) use of oral hypoglycemic drugs; E66.9 Obesity, unspecified; R77.8 Other specified abnormalities of plasma proteins; Z68.27 Body mass index [BMI] 27.0-27.9, adult; I12.9 Hypertensive chronic kidney disease with stage 1 through stage 4 chronic kidney disease, or unspecified chronic kidney disease; E11.22 Type 2 diabetes mellitus with diabetic chronic kidney disease; N18.9 Chronic kidney disease, unspecified; E05.90 Thyrotoxicosis, unspecified without thyrotoxic crisis or storm
CPT/HCPCS: 0241U-QW; 36415; 71045-TC-FY; 71046-TC-FY; 71275-TC; 78452-TC; 80053; 80061; 81003; 82570; 82962; 83036; 83735; 83880; 84100; 84156; 84439; 84443; 84484; 85025; 85379; 85610; 85730; 93005; 93010; 93017; 93306-TC; 93970-TC; 93971; 99285-25; A9502; J2785; Q9967

== ENCOUNTER 2022-07-26 07:23 | Inpatient (IN) | payer BC ==
[2022-07-26 07:41] VITALS: BMI 28.0
[2022-07-26] MEDS ORDERED: ACETAMINOPHEN 1000 MG/100 ML BAG IVPB ONE (07:58)
[2022-07-26] MEDS ORDERED: SODIUM CHLORIDE 0.9% 500 ML INFUS.BAG IV ONE (07:58)
[2022-07-26] MEDS ORDERED: METOCLOPRAMIDE HCL INJECTION 10 MG/2 ML VIAL IVPB ONE (07:58)
[2022-07-26] MEDS ORDERED: METOCLOPRAMIDE HCL INJECTION 10 MG/2 ML VIAL ONE (08:17)
[2022-07-26] MEDS ORDERED: ACETAMINOPHEN INJECTION 100 ML IVPB ONE (08:17)
[2022-07-26 08:52] LABS: BASO % 0.5 % (0-2.0); EOS % 1.2 % (0-4.5); HEMATOCRIT 35.4 % (32.4-45.2); HEMOGLOBIN 11.6 GM/dL (10.7-15.3); LYMPH % 19.7 % (8-40); MCH 29.2 pg (25.7-33.7); MCHC 32.9 g/dl (32.0-36.0); MEAN CELL VOLUME 88.9 fl (80-96); MEAN PLT VOLUME 7.8 fl (7.5-11.1); MONO % 3.7 % (3.8-10.2); NEUT % 74.9 % (42.8-82.8); PLATELET COUNT 281 10^3/uL (134-434); RBC 3.98 M/mm3 (3.60-5.2); RDW 14.6 % (11.6-15.6); WHITE BLOOD COUNT 8.1 K/mm3 (4.0-10.0)
[2022-07-26 09:06] LABS: BLOOD UREA NITROGEN 20.6 mg/dL (7-18); CALCIUM 9.2 mg/dL (8.5-10.1); CREATININE 0.9 mg/dL (0.55-1.3); MAGNESIUM 1.9 mg/dL (1.8-2.4); TOT PROT 8.1 g/dl (6.4-8.2)
[2022-07-26 09:08] LABS: BILIRUBIN,TOTAL 0.7 mg/dL (0.2-1)
[2022-07-26 11:15] LABS: PH,URINE 5.5 (5.0-8.0); URINE APPEARANCE CLEAR; URINE BILIRUBIN NEGATIVE (NEGATIVE); URINE COLOR YELLOW; URINE GLUCOSE (UA) NEGATIVE (NEGATIVE); URINE KETONE NEGATIVE (NEGATIVE); URINE LEUK ESTERASE NEGATIVE (NEGATIVE); URINE NITRITE NEGATIVE (NEGATIVE); URINE PROTEIN NEGATIVE (NEGATIVE); URINE UROBILINOGEN 0.2 mg/dL (0.2-1.0)
[2022-07-26] MEDS ORDERED: ONDANSETRON 4 MG/2 ML VIAL IVPUSH PRN (17:07)
[2022-07-26] MEDS ORDERED: PANTOPRAZOLE 40 MG TABLET PO ONE (17:16)
[2022-07-26] MEDS ORDERED: ACETAMINOPHEN 325 MG TABLET (FP) ONE (17:17)
[2022-07-26] MEDS: ACETAMINOPHEN 325 MG TABLET (FP) PO PRN (17:19)
[2022-07-26] MEDS: PANTOPRAZOLE 40 MG TABLET PO SCH (17:19)
[2022-07-26] MEDS: DEXTROSE 5%-0.45% SALINE 1,000 ML IV SCH (22:36)
[2022-07-26] MEDS: INSULIN SLIDING SCALE (NOVOLOG) 1 VIAL SQ SCH (22:53)
[2022-07-26] MEDS: METHIMAZOLE 10 MG TABLET PO SCH (22:56)
[2022-07-27] MEDS ORDERED: metFORMIN HCL 500 MG TABLET (FP) ONE (06:08)
[2022-07-27] MEDS: metFORMIN HCL 500 MG TABLET (FP) PO SCH ×2 (06:13→17:11)
[2022-07-27] MEDS: METHIMAZOLE 10 MG TABLET PO SCH ×2 (06:13→17:09)
[2022-07-27 06:57] LABS: BASO % 0.4 % (0-2.0); HEMATOCRIT 33.8 % (32.4-45.2); HEMOGLOBIN 11.1 GM/dL (10.7-15.3); LYMPH % 37.3 % (8-40); MCH 29.1 pg (25.7-33.7); MEAN CELL VOLUME 88.2 fl (80-96); MEAN PLT VOLUME 7.5 fl (7.5-11.1); MONO % 6.1 % (3.8-10.2); NEUT % 54.2 % (42.8-82.8); PLATELET COUNT 236 10^3/uL (134-434); RBC 3.83 M/mm3 (3.60-5.2); RDW 14.8 % (11.6-15.6); WHITE BLOOD COUNT 5.4 K/mm3 (4.0-10.0)
[2022-07-27 07:16] LABS: CALCIUM 8.7 mg/dL (8.5-10.1)
[2022-07-27 07:17] LABS: ALBUMIN 3.4 g/dl (3.4-5.0); BLOOD UREA NITROGEN 13.7 mg/dL (7-18)
[2022-07-27 07:20] LABS: CREATININE 0.7 mg/dL (0.55-1.3)
[2022-07-27 07:22] LABS: BILIRUBIN,TOTAL 0.9 mg/dL (0.2-1); TOT PROT 7.3 g/dl (6.4-8.2)
[2022-07-27] MEDS: INSULIN SLIDING SCALE (NOVOLOG) 1 VIAL SQ SCH ×4 (07:36→21:19)
[2022-07-27] MEDS ORDERED: PATIENT'S OWN MEDICATION (NON-FORMULARY) (Valsartan/Hydrochlorothiazide [Valsartan-Hctz 16 PO SCH (10:00)
[2022-07-27] MEDS: ASPIRIN 81 MG CHEWABLE TABLETS PO SCH (11:34)
[2022-07-27] MEDS: PANTOPRAZOLE 40 MG TABLET PO SCH (11:34)
[2022-07-27] MEDS: VALSARTAN 160 MG TABLET PO SCH (11:34)
[2022-07-27] MEDS: HYDROCHLOROTHIAZIDE 12.5 MG CAPSULE (FP) PO SCH (11:34)
[2022-07-27] MEDS: DEXTROSE 5%-0.45% SALINE 1,000 ML IV SCH (21:15)
[2022-07-28] MEDS: INSULIN SLIDING SCALE (NOVOLOG) 1 VIAL SQ SCH ×4 (06:08→22:25)
[2022-07-28] MEDS: metFORMIN HCL 500 MG TABLET (FP) PO SCH ×2 (06:08→16:18)
[2022-07-28 09:01] LABS: BASO % 0.6 % (0-2.0); HEMATOCRIT 34.5 % (32.4-45.2); HEMOGLOBIN 11.4 GM/dL (10.7-15.3); LYMPH % 38.1 % (8-40); MCH 29.4 pg (25.7-33.7); MCHC 33.1 g/dl (32.0-36.0); MEAN CELL VOLUME 88.7 fl (80-96); MEAN PLT VOLUME 7.9 fl (7.5-11.1); MONO % 4.2 % (3.8-10.2); NEUT % 55.1 % (42.8-82.8); PLATELET COUNT 279 10^3/uL (134-434); RBC 3.89 M/mm3 (3.60-5.2); RDW 14.4 % (11.6-15.6); WHITE BLOOD COUNT 6.5 K/mm3 (4.0-10.0)
[2022-07-28 09:39] LABS: CALCIUM 9.1 mg/dL (8.5-10.1)
[2022-07-28 09:40] LABS: ALBUMIN 3.6 g/dl (3.4-5.0); BLOOD UREA NITROGEN 16.3 mg/dL (7-18)
[2022-07-28 09:41] LABS: CREATININE 0.7 mg/dL (0.55-1.3)
[2022-07-28 09:42] LABS: BILIRUBIN,TOTAL 0.9 mg/dL (0.2-1)
[2022-07-28] MEDS: HYDROCHLOROTHIAZIDE 12.5 MG CAPSULE (FP) PO SCH (10:07)
[2022-07-28] MEDS: VALSARTAN 160 MG TABLET PO SCH (10:07)
[2022-07-28] MEDS: ACETAMINOPHEN 325 MG TABLET (FP) PO PRN (10:07)
[2022-07-28] MEDS: PANTOPRAZOLE 40 MG TABLET PO SCH (10:08)
[2022-07-28] MEDS: ASPIRIN 81 MG CHEWABLE TABLETS PO SCH (10:08)
[2022-07-28] MEDS: DEXTROSE 5%-0.45% SALINE 1,000 ML IV SCH ×2 (10:29→22:33)
[2022-07-28] MEDS ORDERED: POLYETHYLENE GLYCOL (HEALTHYLAX) 3350 17 GM PACKET PO ONE (19:00)
[2022-07-28] MEDS ORDERED: DOCUSATE SODIUM 100 MG CAPSULE (FP) PO ONE (19:00)
[2022-07-28] MEDS ORDERED: DOCUSATE SODIUM 100 MG CAPSULE (FP) PO SCH (22:00)
[2022-07-29] MEDS ORDERED: POLYETHYLENE GLYCOL (HEALTHYLAX) 3350 17 GM PACKET PO PRN (03:00)
[2022-07-29] MEDS: INSULIN SLIDING SCALE (NOVOLOG) 1 VIAL SQ SCH ×3 (06:18→16:22)
[2022-07-29] MEDS: metFORMIN HCL 500 MG TABLET (FP) PO SCH ×2 (06:19→16:22)
[2022-07-29] MEDS ORDERED: LEVOTHYROXINE NA 25 MCG TABLET (FP) PO SCH (07:00)
[2022-07-29] MEDS: ASPIRIN 81 MG CHEWABLE TABLETS PO SCH (09:40)
[2022-07-29] MEDS: HYDROCHLOROTHIAZIDE 12.5 MG CAPSULE (FP) PO SCH (09:40)
[2022-07-29] MEDS: VALSARTAN 160 MG TABLET PO SCH (09:41)
[2022-07-29] MEDS: PANTOPRAZOLE 40 MG TABLET PO SCH (09:41)
[2022-07-29] MEDS ORDERED: POLYETHYLENE GLYCOL (HEALTHYLAX) 3350 17 GM PACKET PO SCH (10:00)
[2022-07-29 12:54] VITALS: RESP 18
[2022-07-29 14:02] VITALS: BP 149/59; PULSE 59; TEMP 98.4
== END 2022-07-29 17:00 | disposition home or self-care (01) | DRG 392 ==
LOC: JER 07:23 → JERBED 11:36 → OBSVTOIN 21:45 → J4W 07-27 08:52
PROVIDERS: ADMIT Internal Medicine; ATTEND Internal Medicine
DX: R10.9 Unspecified abdominal pain (principal); R07.9 Chest pain, unspecified; E05.90 Thyrotoxicosis, unspecified without thyrotoxic crisis or storm; E11.9 Type 2 diabetes mellitus without complications; I10 Essential (primary) hypertension; R55 Syncope and collapse; R51.9 Headache, unspecified; R11.0 Nausea
CPT/HCPCS: 36415; 70450-TC; 71045-TC-FY; 74177-TC; 76700-TC; 80053; 81003; 82962; 83036; 83605; 83690; 83735; 84439; 84443; 84484; 85025; 87086; 93005; 93010; 99285-25; C9803-CS; G0378; Q9967; U0003; U0005

== ENCOUNTER 2022-08-18 04:27 | Day surgery (SDC) | payer BC, OTHER ==
[2022-08-17 10:51] VITALS: BMI 29.3
[2022-08-18] MEDS ORDERED: LIDOCAINE HCL/PF 1% SDV 5ML VIAL ONE (07:40)
[2022-08-18] MEDS ORDERED: BUPIVACAINE HCL/PF 0.75% 10 ML VIAL ONE (07:40)
[2022-08-18 08:59] VITALS: RESP 18
[2022-08-18] MEDS ORDERED: LIDOCAINE HCL 1% PRESERVATIVE FREE - 30ML VIAL IJ ONE (11:17)
[2022-08-18] MEDS ORDERED: BUPIVACAINE HCL/PF 0.75% 10 ML VIAL NR ONE (11:19)
[2022-08-18 12:20] VITALS: BP 150/74; PULSE 70; TEMP 97.4
== END 2022-08-18 12:21 | disposition home or self-care (01) ==
LOC: JASU-SURG 04:27
PROVIDERS: ATTEND Pain Medicine Pain Medicine
PROC: 3E0T33Z Introduction of Anti-inflammatory into Peripheral Nerves and Plexi, Percutaneous Approach (ICD-10-PCS; 2022-08-18)
PROC: 3E0T3BZ Introduction of Anesthetic Agent into Peripheral Nerves and Plexi, Percutaneous Approach (ICD-10-PCS; principal; 2022-08-18 10:00)
DX: M47.816 Spondylosis without myelopathy or radiculopathy, lumbar region (principal)
CPT/HCPCS: 76000-TC-FY

== ENCOUNTER 2023-02-23 07:57 | Day surgery (SDC) | payer BC, OTHER ==
[2023-02-23] MEDS ORDERED: IRON SUCROSE INJECTION 200 MG in SODIUM CHLORIDE 100 ML IVPB ONE (08:30)
[2023-02-23 15:31] VITALS: BP 134/70; PULSE 109; RESP 20; TEMP 98.3
== END 2023-02-23 10:05 | disposition home or self-care (01) ==
LOC: JONCNONCHE 07:57
PROVIDERS: ATTEND Internal Medicine Hematology & Oncology
PROC: 3E033GC Introduction of Other Therapeutic Substance into Peripheral Vein, Percutaneous Approach (ICD-10-PCS; principal; 2023-02-23)
DX: D50.9 Iron deficiency anemia, unspecified (principal)
CPT/HCPCS: 96365; J1756

== ENCOUNTER 2023-03-02 07:32 | Day surgery (SDC) | payer BC, OTHER ==
[2023-03-02] MEDS ORDERED: IRON SUCROSE INJECTION 200 MG in SODIUM CHLORIDE 100 ML IVPB ONE (08:30)
[2023-03-02 08:55] VITALS: RESP 18; TEMP 98.6
[2023-03-02 09:02] VITALS: BP 154/79; PULSE 66
== END 2023-03-02 09:20 | disposition home or self-care (01) ==
LOC: JONCNONCHE 07:32
PROVIDERS: ATTEND Internal Medicine Hematology & Oncology
PROC: 3E033GC Introduction of Other Therapeutic Substance into Peripheral Vein, Percutaneous Approach (ICD-10-PCS; principal; 2023-03-02)
DX: D50.9 Iron deficiency anemia, unspecified (principal)
CPT/HCPCS: 96365; J1756

== ENCOUNTER 2023-03-09 07:33 | Day surgery (SDC) | payer BC, OTHER ==
[2023-03-09] MEDS ORDERED: IRON SUCROSE INJECTION 200 MG in SODIUM CHLORIDE 100 ML IVPB ONE (08:00)
[2023-03-09] MEDS ORDERED: diphenhydrAMINE HCL 25 MG CAPSULE (FP) PO ONE (08:26)
[2023-03-09] MEDS ORDERED: ACETAMINOPHEN 325 MG TABLET (FP) PO ONE (08:26)
[2023-03-09 16:03] VITALS: PULSE 76; RESP 20; TEMP 98.4
[2023-03-09 16:04] VITALS: BP 119/71
== END 2023-03-09 10:20 | disposition home or self-care (01) ==
LOC: JONCNONCHE 07:33
PROVIDERS: ATTEND Internal Medicine Hematology & Oncology
PROC: 3E033GC Introduction of Other Therapeutic Substance into Peripheral Vein, Percutaneous Approach (ICD-10-PCS; principal; 2023-03-09)
DX: D50.9 Iron deficiency anemia, unspecified (principal)
CPT/HCPCS: 96365; J1756

== ENCOUNTER 2023-03-16 07:26 | Day surgery (SDC) | payer BC, OTHER ==
[2023-03-16] MEDS ORDERED: diphenhydrAMINE HCL 25 MG CAPSULE (FP) PO ONE (07:45)
[2023-03-16] MEDS ORDERED: ACETAMINOPHEN 325 MG TABLET (FP) PO ONE (07:45)
[2023-03-16] MEDS ORDERED: IRON SUCROSE INJECTION 200 MG in SODIUM CHLORIDE 100 ML IVPB ONE (08:15)
[2023-03-16 14:10] VITALS: BP 113/60; PULSE 63; RESP 18; TEMP 98.3
== END 2023-03-16 10:00 | disposition home or self-care (01) ==
LOC: JONCNONCHE 07:26
PROVIDERS: ATTEND Internal Medicine Hematology & Oncology
PROC: 3E033GC Introduction of Other Therapeutic Substance into Peripheral Vein, Percutaneous Approach (ICD-10-PCS; principal; 2023-03-16)
DX: D50.9 Iron deficiency anemia, unspecified (principal)
CPT/HCPCS: 96365; J1756

== ENCOUNTER 2023-06-14 10:59 | Observation (INO) | payer BC, OTHER ==
[2023-06-14 11:14] VITALS: BMI 30.1
[2023-06-14] MEDS ORDERED: ACETAMINOPHEN INJECTION 100 ML IVPB ONE (13:38)
[2023-06-14] MEDS ORDERED: ACETAMINOPHEN 1000 MG/100 ML BAG IVPB ONE (13:38)
[2023-06-14 14:02] LABS: BASO % 0.2 % (0-2.0); EOS % 1.4 % (0-4.5); HEMATOCRIT 35.6 % (32.4-45.2); HEMOGLOBIN 11.5 GM/dL (10.7-15.3); LYMPH % 39.9 % (8-40); MCHC 32.4 g/dl (32.0-36.0); MEAN CELL VOLUME 95.7 fl (80-96); MEAN PLT VOLUME 7.7 fl (7.5-11.1); MONO % 6.9 % (3.8-10.2); NEUT % 51.6 % (42.8-82.8); PLATELET COUNT 212 10^3/uL (134-434); RBC 3.72 M/mm3 (3.60-5.2); RDW 12.7 % (11.6-15.6); WHITE BLOOD COUNT 5.4 K/mm3 (4.0-10.0)
[2023-06-14 14:10] LABS: INR 1.09 (0.83-1.09); PROTHROMBIN TIME (PATIENT) 12.6 SEC (9.7-13.0)
[2023-06-14 14:13] LABS: ACTIVATED PTT 30.7 SECONDS (25.2-36.5)
[2023-06-14 14:26] LABS: BLOOD UREA NITROGEN 18.4 mg/dL (7-18); CALCIUM 9.3 mg/dL (8.5-10.1)
[2023-06-14 14:27] LABS: ALBUMIN 3.9 g/dl (3.4-5.0)
[2023-06-14 14:29] LABS: CREATININE 0.8 mg/dL (0.55-1.3)
[2023-06-14 14:31] LABS: TOT PROT 7.9 g/dl (6.4-8.2)
[2023-06-14] MEDS ORDERED: ASPIRIN 325 MG TABLET PO ONE (15:06)
[2023-06-14] MEDS ORDERED: ASPIRIN 325 MG TABLET ONE (15:21)
[2023-06-14] MEDS: INSULIN (NOVOLOG) ASPART 100 UNITS/ML 10ML VIAL SQ SCH ×2 (19:28→22:01)
[2023-06-14] MEDS: HEPARIN NA (PORCINE) 5,000 UNITS/ML 1ML VIAL SQ SCH (21:37)
[2023-06-14] MEDS: ACETAMINOPHEN 325 MG TABLET (FP) PO PRN (21:37)
[2023-06-14] MEDS: METHIMAZOLE 10 MG TABLET PO SCH (21:37)
[2023-06-15] MEDS: ACETAMINOPHEN 325 MG TABLET (FP) PO PRN (06:38)
[2023-06-15] MEDS: METHIMAZOLE 10 MG TABLET PO SCH ×3 (06:39→21:46)
[2023-06-15] MEDS: HEPARIN NA (PORCINE) 5,000 UNITS/ML 1ML VIAL SQ SCH ×3 (06:40→21:46)
[2023-06-15] MEDS: INSULIN (NOVOLOG) ASPART 100 UNITS/ML 10ML VIAL SQ SCH ×4 (06:57→21:53)
[2023-06-15 08:49] LABS: HEMATOCRIT 39.1 % (32.4-45.2); HEMOGLOBIN 12.8 GM/dL (10.7-15.3); MCH 31.2 pg (25.7-33.7); MCHC 32.8 g/dl (32.0-36.0); MEAN CELL VOLUME 95.1 fl (80-96); MEAN PLT VOLUME 8.5 fl (7.5-11.1); PLATELET COUNT 214 10^3/uL (134-434); RBC 4.11 M/mm3 (3.60-5.2); RDW 12.9 % (11.6-15.6); WHITE BLOOD COUNT 5.3 K/mm3 (4.0-10.0)
[2023-06-15 09:04] LABS: POTASSIUM 4.1 mmol/L (3.5-5.1)
[2023-06-15 09:08] LABS: BLOOD UREA NITROGEN 20.5 mg/dL (7-18)
[2023-06-15 09:09] LABS: CALCIUM 9.4 mg/dL (8.5-10.1)
[2023-06-15 09:11] LABS: CHOLESTEROL 160 mg/dL (50-200); CREATININE 0.7 mg/dL (0.55-1.3); PHOSPHOROUS 3.9 mg/dL (2.5-4.9)
[2023-06-15 09:12] LABS: LDL CHOLESTEROL (ONLY SJRH) 94 mg/dL (5-100)
[2023-06-15 09:14] LABS: HDL CHOLESTEROL 58 mg/dL (40-60)
[2023-06-15] MEDS ORDERED: PATIENT'S OWN MEDICATION (NON-FORMULARY) (Valsartan/Hydrochlorothiazide [Valsartan-Hctz 16 PO SCH (10:00)
[2023-06-15] MEDS: PANTOPRAZOLE 40 MG TABLET PO SCH (10:45)
[2023-06-15] MEDS: ASPIRIN COATED 81 MG TABLET.EC PO SCH (10:45)
[2023-06-15] MEDS: VALSARTAN 160 MG TABLET PO SCH (10:45)
[2023-06-15] MEDS: HYDROCHLOROTHIAZIDE 12.5 MG CAPSULE (FP) PO SCH (10:45)
[2023-06-15] MEDS ORDERED: INSULIN (NOVOLOG) ASPART 100 UNITS/ML 10ML VIAL ONE ×3 (11:48→21:51)
[2023-06-15] MEDS ORDERED: ATORVASTATIN CA 10 MG TABLET (FP) PO SCH (22:00)
[2023-06-16] MEDS: HEPARIN NA (PORCINE) 5,000 UNITS/ML 1ML VIAL SQ SCH ×2 (06:36→13:15)
[2023-06-16] MEDS: METHIMAZOLE 10 MG TABLET PO SCH ×2 (06:36→13:15)
[2023-06-16] MEDS: INSULIN (NOVOLOG) ASPART 100 UNITS/ML 10ML VIAL SQ SCH ×3 (06:37→17:09)
[2023-06-16] MEDS: ASPIRIN COATED 81 MG TABLET.EC PO SCH (10:00)
[2023-06-16] MEDS: VALSARTAN 160 MG TABLET PO SCH (10:00)
[2023-06-16] MEDS: PANTOPRAZOLE 40 MG TABLET PO SCH (10:00)
[2023-06-16] MEDS: HYDROCHLOROTHIAZIDE 12.5 MG CAPSULE (FP) PO SCH (10:02)
[2023-06-16] MEDS ORDERED: INSULIN (NOVOLOG) ASPART 100 UNITS/ML 10ML VIAL ONE (11:33)
[2023-06-16 15:40] VITALS: BP 134/71; PULSE 71; RESP 18; TEMP 98.4
== END 2023-06-16 17:09 | disposition home or self-care (01) ==
LOC: JER 10:59 → JERBED 16:09 → J4W 20:48
PROVIDERS: ADMIT Family Medicine; ATTEND Family Medicine
PROC: 3E033NZ Introduction of Analgesics, Hypnotics, Sedatives into Peripheral Vein, Percutaneous Approach (ICD-10-PCS; principal; 2023-06-14)
PROC: 3E023GC Introduction of Other Therapeutic Substance into Muscle, Percutaneous Approach (ICD-10-PCS; 2023-06-14)
DX: I25.119 Atherosclerotic heart disease of native coronary artery with unspecified angina pectoris (principal); I10 Essential (primary) hypertension; N20.0 Calculus of kidney; E78.5 Hyperlipidemia, unspecified; Z98.84 Bariatric surgery status; E05.90 Thyrotoxicosis, unspecified without thyrotoxic crisis or storm; E11.65 Type 2 diabetes mellitus with hyperglycemia; Z87.891 Personal history of nicotine dependence; Z96.651 Presence of right artificial knee joint; Z90.49 Acquired absence of other specified parts of digestive tract
CPT/HCPCS: 36415; 71045-TC-FY; 71275-TC; 80048; 80053; 80061; 82962; 83690; 83735; 84100; 84484; 85025; 85027; 85379; 85610; 85730; 93005; 93010; 93306-TC; 96372; 96374; 99285-25; G0378; J1644; Q9967

== ENCOUNTER 2023-10-28 07:30 | Emergency (ER) | payer BC, OTHER ==
[2023-10-28 08:02] VITALS: BP 179/91; PULSE 64; RESP 17; TEMP 98.9; BMI 30.1
[2023-10-28] MEDS ORDERED: KETOROLAC TROMETHAMINE 30 MG/1 ML VIAL IM ONE (08:37)
[2023-10-28] MEDS ORDERED: KETOROLAC TROMETHAMINE 30 MG/1 ML VIAL ONE (08:41)
== END 2023-10-28 09:25 | disposition home or self-care (01) ==
LOC: JERFT 07:30 → JER 07:30 → JERFT 09:25
PROC: 3E0233Z Introduction of Anti-inflammatory into Muscle, Percutaneous Approach (ICD-10-PCS; principal; 2023-10-28)
DX: M79.661 Pain in right lower leg (principal)
CPT/HCPCS: 73590-TC-RT-FY; 99284-25